=== PATIENT | male | born 1970 | race Two or more races ===

== ENCOUNTER 2024-06-13 05:00 | Emergency (ER) | payer SELFPAY ==
[~2024-06-13] VITALS: Ht 180.3 cm; Wt 99.3 kg
--- NOTE | 2024-06-13 06:44 | DVH ---
EXAM: CT LS SPINE WO CONTRAST HISTORY: LOW BACK PAIN RADICULOPTHY COMPARISON: None CTDIvol 31.77 mGy, DLP 1182.22 mGy*cm. TECHNIQUE: Multiple axial CT images of the spine were obtained using bone algorithm. Axial and coron al reformatting was done. Bone and soft tissue windows were reviewed. FINDINGS: No CT evidence of definite acute fracture, spinal dislocation, or significant appearing acute subluxa tion is seen. The visualized paraspinal soft tissues are grossly unremarkable. Mild multilevel degenerative change includes anterior osteophytosis and minimal multilevel disc osteo phyte complex formation. No significant degree of central canal or neural foraminal stenosis is ident ified. IMPRESSION: 1. No definite CT evidence of acute fracture or dislocation of the bony lumbar spine.
[2024-06-13 06:50] VITALS: BP 147/71; PULSE 78; RESP 18; TEMP 97.9; O2SAT 96
--- NOTE | 2024-06-13 07:27 | ED.PDOC ---
History of Present Illness HPI Comments This is a 53-year-old gentleman that comes in with some right hip pain that radiates to his right groin. He has been seeing a chiropractor without any relief for the symptoms. He states the pain comes and goes like a spasm. Denies any injury. But the last 3 days it has been very bad. Denies any incontinence numbness or tingling Chief Complaint: Lower back Time Seen by MD: 07:21 Reviewed Notes: Nurses Notes, Medications, Allergies Allergies: Coded Allergies: NO KNOWN ALLERGIES (Unverified , 06/13/24) Information Source: Patient Mode of Arrival: Ambulatory Past Medical History PAST MEDICAL HISTORY: Denies Surgical History: Denies all surgeries Social History Smoker: Non-Smoker Alcohol: Denies ETOH Use Drugs: Denies Drug Use Lives In: Home Musculoskeletal: reports: back pain, others (radiation to the right groin) Physical Exam General Appearance: No Apparent Distress, Normal HEENT: Normal ENT Inspection, PERRL/EOMI, TMs Normal Neck: Non-Tender, Normal Inspection, Supple Respiratory: No Respiratory Distress, Normal Breath Sounds Cardiovascular: Regular Rate/Rhythm Breast Exam: Deferred Gastrointestinal: Non Tender, Normal Bowel Sounds Genitalia: Deferred Pelvic: Deferred Rectal: Deferred Extremities: Normal range of motion, Non-tender Musculoskeletal : Location: Right (Right lower back extending into the right groin with some tenderness, spasm appreciated) Apperance: Normal, Tenderness: Mild Neurologic: Alert, No Motor Deficits, Normal Mood Cerebellar Function: NOT DONE Reflexes: Normal Skin: Dry, Warm Lymphatic: NOT DONE Was a procedure done? Was a procedure done?: No Differential Dx Considerations may include: Urinary tract infection, lumbar fracture X-Ray, Labs, Meds, VS Vital Signs Date Time Temp Pulse Resp B/P (MAP) Pulse Ox O2 Delivery O2 Flow Rate FiO2 06/13/24 06:50 97.9 78 18 147/71 (96) 96 97.9 06/13/24 06:50 78 18 96 Room Air 06/13/24 05:21 97.9 78 20 151/89 (109) 97 97.9 Current Medications Medications (Trade) Dose Ordered Sig/Perez Route Start Time Stop Time Status Last Admin Ketorolac Tromethamine (Toradol Injection) 60 mg ONCE ONCE IM 06/13/24 07:30 06/13/24 07:33 DC 06/13/24 07:44 Acetaminophen/ Hydrocodone Bitart (Cumbola 10/325MG Tab) 1 tab ONCE ONCE PO 06/13/24 07:30 06/13/24 07:33 DC 06/13/24 07:44 X-Ray, Labs, Meds, VS Comment Patient seen and examined by me. Patient has had back pain that is been intermittent for a while. He sees chiropractor on the outside with it which has not helped very much. He does have some radiation to his right leg. CT of the low back was ordered which did not show any fracture and minimal changes. Patient will be given a Toradol shot, as well as a [place] while he is here in the [place]. He will be sent home with Motrin as well as a muscle relaxer. I have instructed him to continue his follow up with his primary care if he needs to see a back surgeon also with his chiropractor. Supportive therapy with moist heat and ice alternating. EXAM: CT LS SPINE WO CONTRAST HISTORY: LOW BACK PAIN RADICULOPTHY COMPARISON: None CTDIvol 31.77 mGy, DLP 1182.22 mGy*cm. TECHNIQUE: Multiple axial CT images of the spine were obtained using bone algorithm. Axial and coronal reformatting was done. Bone and soft tissue windows were reviewed. FINDINGS: No CT evidence of definite acute fracture, spinal dislocation, or significant appearing acute subluxation is seen. The visualized paraspinal soft tissues are grossly unremarkable. Mild multilevel degenerative change includes anterior osteophytosis and minimal multilevel disc osteophyte complex formation. No significant degree of central canal or neural foraminal stenosis is identified. IMPRESSION: 1. No definite CT evidence of acute fracture or dislocation of the bony lumbar spine. Time of 1ST Reevaluation: 07:53 Reevaluation 1ST: Improved Patient Education/Counseling: Diagnosis, Treatment, Prognosis, Need For Follow Up Family Education/Counseling: Diagnosis, Treatment, Prognosis, Need For Follow Up Departure 1 Departure Time of Disposition: 07:53 Impression: Primary Impression: Sciatica associated with disorder of lumbar spine Disposition: 01 HOME / SELF CARE / HOMELESS Condition: Good Additional Instructions: Follow-up with your regular doctor in the next 1-2 days Use the muscle relaxer as needed for spasm Start the Motrin tomorrow Alternate heat and ice to help with the pain. e-Prescriptions Cyclobenzaprine Hcl (Cyclobenzaprine Hcl) 10 Mg Tab 10 MG PO TIDPRN PRN, #20 TAB Prov: AR MARQUEZP 06/13/24 Ibuprofen Micronized (Ibuprofen) 600 Mg Tab 600 MG PO Q6HPRN PRN for 5 Days, #20 TAB Prov: AR MARQUEZ 06/13/24 Discharged With: Self Critical Care Note Critical Care Time?: No Stability Stability form required: Yes AR MARQUEZ [facility] Jun 13, 2024 07:26
[2024-06-13] MEDS: KETOROLAC TROMETH 60MG/2ML VIAL IM ONE (07:44)
[2024-06-13] MEDS: HYDROcodone-ACET 10/325MG TAB PO ONE (07:44)
[2024-06-13] MEDS ORDERED: IBUP1TAB5 PO (07:55)
[2024-06-13] MEDS ORDERED: CYCL-839 PO (07:55)
== END 2024-06-13 08:25 | disposition home or self-care (01) ==
LOC: ER 05:00
DX: M51.372 Other intervertebral disc degeneration, lumbosacral region with discogenic back pain and lower extremity pain (principal)
CPT/HCPCS: 72131; 96372; 99285; J1885